=== PATIENT | male | born 1955 | race Caucasian/White ===

== ENCOUNTER 2022-03-07 07:09 | Observation (INO) ==
[2022-03-07] MEDS ORDERED: ONDANSETRON INJ 2 MG/ML 2 ML VIAL ONE (07:21)
[2022-03-07] MEDS ORDERED: ASPIRIN CHEW 324 MG ONE (07:22)
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
[2022-03-07 07:31] LABS: Basophils # (auto) 0.07 K/uL (0-0.2); Basophils % (auto) 0.8 %; Eosinophils # (auto) 0.31 K/uL (0-0.50); Eosinophils % (auto) 3.5 %; Hematocrit (blood only) 39.1 % (40.1-51.0); Hemoglobin 13.6 g/dl (14.0-18.0); Immature Granulocytes # (auto) 0.02 K/uL (0.00-0.02); Immature Granulocytes % (auto) 0.2 %; Lymphocytes # (auto) 2.75 K/uL (1.2-3.4); Lymphocytes % (auto) 31.1 %; Mean Corpuscular Hemoglobin 31.3 pg (25.0-34.0); Mean Corpuscular Hgb Conc 34.8 g/dL (32.0-36.0); Mean Corpuscular Volume 90.1 fL (80.0-100.0); Monocytes # (auto) 1.26 K/uL (0.24-0.82); Monocytes % (auto) 14.2 %; Neutrophils # (auto) 4.44 K/uL (1.4-6.5); Neutrophils % (auto) 50.2 %; Platelet Count 350 K/uL (130-400); RDW Coefficient of Variation 13.4 % (11.5-14.5); RDW Standard Deviation 44.1 fL (36.4-46.3); Red Blood Count 4.34 M/uL (4.63-6.08); White Blood Count 8.85 K/ul (4.8-10.8)
[2022-03-07 07:45] LABS: D Dimer 440 ug/L FEU (0-500)
[2022-03-07 07:53] LABS: Albumin Globulin Ratio 1.3 (0.9-2); Albumin Level 3.9 gm/dl (3.4-5.0); BUN Creatinine Ratio 19.4 (10-20); Bilirubin,Total 0.7 mg/dl (0.2-1.0); Calcium 9.9 mg/dl (8.5-10.1); Creatinine Clr Calc Pharmacy 134.4 ml/min; Est GFR (African American) 115.2 ml/min; Est GFR (Non-African American) 99.4 ml/min; Globulin 2.9 gm/dl (2.5-4.0); Magnesium 1.6 mg/dl (1.7-2.4); Potassium 3.6 mmol/L (3.5-5.1); Total Protein 6.8 gm/dl (6.0-8.3)
[2022-03-07] MEDS ORDERED: MAGNESIUM SULFATE / D5W 1 GM/100 ML BAG IV STA (07:54)
--- NOTE | 2022-03-07 08:03 | XRay Report ---
XR chest 1V portable CLINICAL HISTORY: chest pain, sob TECHNIQUE: Single frontal radiograph of the chest was obtained. Comparison: None available at the time of this dictation. FINDINGS: No lines and tubes are seen. Cardiomegaly is noted. Prominence and cephalization of the vasculature i s seen. No evidence of pleural effusion or pneumothorax. IMPRESSION: Cardiomegaly and mild pulmonary edema. ACT 112: Negative or not required by law. Electronically signed by: Bennett Prado M.D. 03/07/2022 8:02 AM
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
[2022-03-07] MEDS ORDERED: NovoLIN-R INSULIN PER UNIT CHARGE IV STA (12:19)
[2022-03-07] MEDS: Patient's ALLERGY Info needs ENTERED SCH ×6 (13:00→18:47)
[2022-03-07 13:02] LABS: Influenza A virus by PCR Negative (Neg); Influenza B virus by PCR Negative (Neg); RSV by PCR Negative (Neg); SARS CoV2 RNA(COVID-19) InHosp NEGATIVE (Negative)
[2022-03-07] MEDS: LOSARTAN POTASSIUM 50 MG TAB PO SCH (13:45)
--- NOTE | 2022-03-07 15:13 | XCELERA ---
[id number] \\[id number]
[2022-03-07] MEDS ORDERED: ACETAMINOPHEN 325 MG TAB PO PRN (15:41)
[2022-03-07] MEDS ORDERED: GLUCAGON FOR INJ 1 MG VIAL SQ PRN (15:41)
[2022-03-07] MEDS ORDERED: CARBOHYDRATES FOR HYPOGLYCEMIA PO PRN (15:41)
[2022-03-07] MEDS ORDERED: DEXTROSE 50% 50 ML SYRINGE IV PRN (15:41)
[2022-03-07] MEDS ORDERED: POLYETHYLENE (MIRALAX) 17 GM PACK PO PRN (15:41)
[2022-03-07] MEDS ORDERED: GLUCOSE 10 TAB/TUBE PO PRN (15:41)
[2022-03-07] MEDS ORDERED: GLUCOSE 40% GEL 15 GM TUBE PO PRN (15:41)
--- NOTE | 2022-03-07 15:53 | Electrocardiogram Report ---
Test Reason : Blood Pressure : / mmHG Vent. Rate : 061 BPM Atrial Rate : 061 BPM P-R Int : 206 ms QRS Dur : 096 ms QT Int : 440 ms P-R-T Axes : -08 -09 036 degrees QTc Int : 442 ms Normal sinus rhythm Normal ECG When compared with ECG of 04-JAN-2001 07:51, No significant change was found Confirmed by Julian Snow ([id number]) on 03/07/2022 3:53:23 PM Referred By: REFERRED SELF Confirmed By:Julian Snow
[2022-03-07] MEDS: INSULIN ASPART PER UNIT SC SCH ×2 (18:44→22:39)
[2022-03-07] MEDS ORDERED: amLODIPine BESYLATE 5 MG TAB PO SCH (21:00)
[2022-03-07] MEDS ORDERED: ATORVASTATIN 10 MG TAB PO SCH (21:00)
[2022-03-07] MEDS ORDERED: hydroCHLOROthiazide 25 MG TAB PO SCH (21:00)
--- NOTE | 2022-03-07 21:12 | Ultrasound Report ---
US thyroid CLINICAL HISTORY: 66 years-old Male with hx thyroid nodule/tumor. Follow-up study in a patient with history of thyroid nodules COMPARISON: None TECHNIQUE: Multiple real time sonographic images of the thyroid were obtained accessing rossi scale ap pearance and color doppler flow. FINDINGS: MEASUREMENTS: Right lobe: 4.3 x 1.8 x 1.7 cm Left lobe: 4.4 x 2.8 x 1.6 cm Isthmus: 0.2 cm PARENCHYMA: The thyroid parenchymal echotexture is heterogeneous. NODULES: Complex predominantly solid and partially cystic nodule of the inferior left thyroid measure s 1.9 x 1.8 x 1.9 cm. IMPRESSION: Complex mixed cystic and solid nodule of the inferior left thyroid measures up to 1.9 cm. Correlation with FNA recommended if not already conducted. ACT 112: Negative or not required by law. The above report was generated using voice recognition software. It may contain grammatical, syntax o r spelling errors. Electronically signed by: Wesley Constantino M.D. 03/07/2022 9:10 PM
[2022-03-07] MEDS: ENOXAPARIN INJ 40 MG/0.4 ML SYR SQ SCH (22:43)
[2022-03-07] MEDS: LANTUS PER UNIT CHARGE SQ SCH (22:59)
[2022-03-08] MEDS: Patient's ALLERGY Info needs ENTERED SCH ×7 (03:09→07:58)
[2022-03-08 07:43] LABS: Basophils # (auto) 0.05 K/uL (0-0.2); Basophils % (auto) 0.6 %; Eosinophils # (auto) 0.31 K/uL (0-0.50); Eosinophils % (auto) 3.7 %; Hematocrit (blood only) 39.3 % (40.1-51.0); Hemoglobin 13.5 g/dl (14.0-18.0); Immature Granulocytes # (auto) 0.02 K/uL (0.00-0.02); Immature Granulocytes % (auto) 0.2 %; Lymphocytes % (auto) 31.1 %; Mean Corpuscular Hemoglobin 31.1 pg (25.0-34.0); Mean Corpuscular Hgb Conc 34.4 g/dL (32.0-36.0); Mean Corpuscular Volume 90.6 fL (80.0-100.0); Mean Platelet Volume 9.8 fL (9.4-12.4); Monocytes # (auto) 1.19 K/uL (0.24-0.82); Monocytes % (auto) 14.2 %; Neutrophils % (auto) 50.2 %; Platelet Count 361 K/uL (130-400); RDW Coefficient of Variation 13.5 % (11.5-14.5); RDW Standard Deviation 45.1 fL (36.4-46.3); Red Blood Count 4.34 M/uL (4.63-6.08); White Blood Count 8.37 K/ul (4.8-10.8)
[2022-03-08] MEDS ORDERED: Nursing to Pharmacy Communication SCH (07:45)
[2022-03-08 08:09] LABS: BUN Creatinine Ratio 21.7 (10-20); Calcium 9.4 mg/dl (8.5-10.1); Creatinine Clr Calc Pharmacy 149.4 ml/min; Est GFR (African American) 120.6 ml/min; Magnesium 1.7 mg/dl (1.7-2.4); Potassium 3.9 mmol/L (3.5-5.1)
[2022-03-08 08:22] LABS: Estimated Average Glucose 240 mg/dl
[2022-03-08 08:38] LABS: Cortisol AM 17.04 mcg/dl (6.2-22.6)
[2022-03-08 08:43] LABS: Base Excess ABG 3.2 mEq/L (-9-1.8); HCO3 ABG 28 mmol/L (19-24); PCO2 ABG 42 mmHg (35-46); PO2 ABG 65 mmHg (80-95); pH ABG 7.43 (7.35-7.45)
[2022-03-08 08:44] LABS: Allen Test Pos (Pos)
[2022-03-08 08:46] LABS: Prolactin 7.37 ng/ml
[2022-03-08] MEDS ORDERED: ATORVASTATIN 10 MG TAB PO SCH (09:00)
[2022-03-08] MEDS ORDERED: amLODIPine BESYLATE 5 MG TAB PO SCH (09:00)
[2022-03-08] MEDS ORDERED: LOSARTAN POTASSIUM 25 MG TAB PO SCH (09:00)
[2022-03-08] MEDS ORDERED: hydroCHLOROthiazide 25 MG TAB PO SCH (09:00)
[2022-03-08] MEDS: INSULIN ASPART PER UNIT SC SCH ×2 (09:21→12:38)
[2022-03-08] MEDS: LANTUS PER UNIT CHARGE SQ SCH (09:21)
[2022-03-08] MEDS: LOSARTAN POTASSIUM 50 MG TAB PO SCH (09:22)
[2022-03-08] MEDS: ENOXAPARIN INJ 40 MG/0.4 ML SYR SQ SCH (09:22)
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
== END 2022-03-08 14:18 | disposition home or self-care (01) ==
LOC: EDINP 07:09 → ED 07:09 → SUATTDRO 11:50 → 2N 15:22

== ENCOUNTER 2023-09-04 12:52 | Inpatient (IN) ==
[2023-09-04 13:27] LABS: Basophils # (auto) 0.05 K/uL (0.00-0.20); Basophils % (auto) 0.6 %; Eosinophils # (auto) 0.15 K/uL (0.00-0.50); Eosinophils % (auto) 1.8 %; Hematocrit (blood only) 41.9 % (42.0-52.0); Hemoglobin 14.3 g/dl (14.0-18.0); Immature Granulocytes # (auto) 0.03 K/uL (0.01-0.20); Immature Granulocytes % (auto) 0.4 %; Lymphocytes # (auto) 1.86 K/uL (1.20-3.40); Lymphocytes % (auto) 22.5 %; Mean Corpuscular Hgb Conc 34.1 g/dL (32.0-36.0); Mean Corpuscular Volume 90.7 fL (80.0-100.0); Mean Platelet Volume 9.3 fL (9.4-12.4); Monocytes % (auto) 15.7 %; Neutrophils # (auto) 4.88 K/uL (1.40-6.50); Platelet Count 312 K/uL (130-400); RDW Coefficient of Variation 14.5 % (11.5-14.5); RDW Standard Deviation 48.1 fL (36.4-46.3); Red Blood Count 4.62 M/uL (4.70-6.10); White Blood Count 8.27 K/ul (4.8-10.8)
[2023-09-04] MEDS: NITROGLYCERIN 2% OINTMENT 30GM TUBE EXT STA (13:34)
--- NOTE | 2023-09-04 13:41 | XRay Report ---
XR chest 1V portable HISTORY: 68 years-old Male Chest pain, nonspecific COMPARISON: 01/07/2023 TECHNIQUE: AP view of the chest FINDINGS: Cardiac silhouette is enlarged. Mild chronic interstitial coarsening. No pneumothorax, pleural effusi on or airspace consolidation. Spondylotic spurring of the spine. IMPRESSION: Cardiomegaly without acute process. ACT 112: Negative or not required by law. The above report was generated using voice recognition software. It may contain grammatical, syntax o r spelling errors. Electronically signed by: Wesley Constantino M.D. 09/04/2023 1:39 PM
[2023-09-04 13:46] LABS: Albumin Globulin Ratio 1.3 (0.9-2); Albumin Level 4.2 gm/dl (3.4-5.0); BUN Creatinine Ratio 21.2 (10-20); Bilirubin,Total 0.6 mg/dl (0.2-1.0); Calcium 8.8 mg/dl (8.6-10.3); Creatinine Clr Calc Pharmacy 126.8 ml/min; Est GFR (African American) 114.3 ml/min; Est GFR (Non-African American) 98.6 ml/min; Globulin 3.3 gm/dl (2.5-4.0); Potassium 3.5 mmol/L (3.5-5.1); Total Protein 7.5 gm/dl (6.0-8.3)
[2023-09-04 13:50] LABS: Partial Thromboplastin Ratio 0.9; Partial Thromboplastin Time 24 Seconds (21-31); Prothrombin Time 10.9 Seconds (9.0-12.0); Troponin I High Sensitivity 7.3 pg/ml (0-20)
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
[2023-09-04] MEDS: ACETAMINOPHEN 500 MG TAB PO STA (14:42)
[2023-09-04] MEDS: MoRPHine SULFATE 2 MG/ML CARP IV STA (14:47)
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
[2023-09-04 18:43] LABS: Lyme Screen Rflx Confirmation Positive (Negative)
[2023-09-04] MEDS ORDERED: GLUCOSE 10 TAB/TUBE PO PRN (19:41)
[2023-09-04] MEDS ORDERED: DEXTROSE 50% 50 ML SYRINGE IV PRN (19:41)
[2023-09-04] MEDS ORDERED: GLUCOSE 40% GEL 15 GM TUBE PO PRN (19:41)
[2023-09-04] MEDS ORDERED: GLUCAGON FOR INJ 1 MG VIAL SQ PRN (19:41)
[2023-09-04] MEDS ORDERED: CARBOHYDRATES FOR HYPOGLYCEMIA PO PRN (19:41)
[2023-09-04] MEDS: INSULIN ASPART PER UNIT CHARGE SC SCH (21:05)
[2023-09-05] MEDS: ATORVASTATIN 40 MG TAB PO SCH (01:10)
--- NOTE | 2023-09-05 08:31 | Electrocardiogram Report ---
Test Reason : Blood Pressure : / mmHG Vent. Rate : 058 BPM Atrial Rate : 058 BPM P-R Int : 226 ms QRS Dur : 096 ms QT Int : 434 ms P-R-T Axes : 021 -10 039 degrees QTc Int : 426 ms Sinus bradycardia with 1st degree A-V block Otherwise normal ECG When compared with ECG of 07-JAN-2023 17:58, No significant change Confirmed by Richmond Hall ([id number]) on 09/05/2023 8:30:58 AM Referred By: REFERRED SELF Confirmed By:Richmond Hall
[2023-09-05] MEDS ORDERED: LANTUS PER UNIT CHARGE SQ SCH (09:00)
[2023-09-05 09:13] LABS: Basophils # (auto) 0.04 K/uL (0.00-0.20); Basophils % (auto) 0.4 %; Eosinophils # (auto) 0.19 K/uL (0.00-0.50); Hematocrit (blood only) 42.1 % (42.0-52.0); Hemoglobin 14.5 g/dl (14.0-18.0); Immature Granulocytes # (auto) 0.03 K/uL (0.01-0.20); Immature Granulocytes % (auto) 0.3 %; Lymphocytes # (auto) 2.23 K/uL (1.20-3.40); Mean Corpuscular Hemoglobin 31.4 pg (25.0-34.0); Mean Corpuscular Hgb Conc 34.4 g/dL (32.0-36.0); Mean Corpuscular Volume 91.1 fL (80.0-100.0); Mean Platelet Volume 9.2 fL (9.4-12.4); Monocytes # (auto) 1.16 K/uL (0.11-0.59); Monocytes % (auto) 12.5 %; Neutrophils # (auto) 5.66 K/uL (1.40-6.50); Neutrophils % (auto) 60.8 %; Platelet Count 333 K/uL (130-400); RDW Coefficient of Variation 14.6 % (11.5-14.5); RDW Standard Deviation 48.9 fL (36.4-46.3); Red Blood Count 4.62 M/uL (4.70-6.10); White Blood Count 9.31 K/ul (4.8-10.8)
[2023-09-05 09:19] LABS: BUN Creatinine Ratio 22.7 (10-20); Calcium 8.7 mg/dl (8.6-10.3); Creatinine Clr Calc Pharmacy 126.6 ml/min; Est GFR (African American) 114.3 ml/min; Est GFR (Non-African American) 98.6 ml/min
[2023-09-05] MEDS: ASPIRIN 81 MG ECTAB PO SCH (11:17)
[2023-09-05] MEDS: LOSARTAN POTASSIUM 50 MG TAB PO SCH (11:20)
[2023-09-05] MEDS: amLODIPine BESYLATE 5 MG TAB PO SCH ×2 (11:31→20:29)
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
[2023-09-05] MEDS: LANTUS PER UNIT CHARGE SQ SCH (12:01)
[2023-09-05] MEDS: hydroCHLOROthiazide 25 MG TAB PO SCH (12:08)
--- NOTE | 2023-09-05 12:44 | Pre Anesthesia Assessment ---
Date of Service September 05, 2023 Pre Sedation Assessment Vital Signs Temp Pulse Pulse Resp BP BP Pulse Ox 09/05/23 11:39 97.9 F 65 18 169/92 H 94 09/05/23 08:00 65 09/05/23 07:37 98.4 F 67 18 148/79 H 97 09/05/23 03:25 95 09/05/23 03:19 98.2 F 76 19 159/71 H 90 09/04/23 23:32 97.9 F 60 16 144/75 H 94 09/04/23 23:30 59 L 09/04/23 22:15 63 17 140/84 94 09/04/23 20:13 57 L 14 93 09/04/23 20:10 98.2 F 57 L 17 145/78 H 93 09/04/23 19:56 61 09/04/23 19:41 09/04/23 17:06 53 L 09/04/23 16:06 97.9 F 56 L 14 138/73 94 09/04/23 13:13 87 09/04/23 13:05 94 09/04/23 12:59 99.0 F 61 14 144/68 H 93 Pulse Ox O2 Del Method O2 Del Method O2 Flow Rate 09/05/23 11:39 Room Air 09/05/23 08:00 09/05/23 07:37 Nasal Cannula 1 09/05/23 03:25 Nasal Cannula 2 09/05/23 03:19 Room Air 09/04/23 23:32 Room Air 09/04/23 23:30 09/04/23 22:15 Room Air 09/04/23 20:13 Room Air 09/04/23 20:10 Room Air 09/04/23 19:56 09/04/23 19:41 93 Room Air 09/04/23 17:06 09/04/23 16:06 Room Air 09/04/23 13:13 09/04/23 13:05 Room Air 09/04/23 12:59 Room Air Cardiovascular + regular rate Respiratory + respiratory effort normal Pre-Sedation Airway Assessment Smoking Status: Never smoker Hx Sleep Apnea: No Hx Difficult Intubation: No Short, Thick Neck: No Thyromental Distance: > or= 3.5 Finger Breadths Oral Cavity: + WNL Mallampati Class: III ASA: ASA3 Procedure Planning Contraindications for Sedation: none Current Medications Reviewed: Yes Notes The planned sedation has been discussed with the patient. Informed Consent was obtained. I have identified the patient, determined the appropriateness of sedation and have assessed the patient immediately prior to the procedure. All medicine(s) and interventions are by my order.
[2023-09-05] MEDS: NITROGLYCERIN/D5W 100MCG/ML 20ML SYR ONE (13:04)
[2023-09-05] MEDS: niCARdipine HCL INJ 2.5 MG/ML 10 ML AMP ONE (13:04)
[2023-09-05] MEDS: MIDAZOLAM HCL 1 MG/ML 2ML VIAL ONE (14:05)
[2023-09-05] MEDS: HEPARIN (PORCINE) 1000 UNIT/ML 10 ML (CATH LAB USE ONLY) ONE ×2 (14:06→14:08)
[2023-09-05] MEDS: fentaNYL citrate PF 100 MCG/2 ML VIAL ONE (14:06)
[2023-09-05] MEDS: OPTIRAY 350 ONE (14:07)
[2023-09-05] MEDS: CLOPIDOGREL BISULFATE 300 MG TAB ONE (14:08)
--- NOTE | 2023-09-05 14:19 | Post Anesthesia Assessment ---
Date of Service September 05, 2023 Post Sedation Assessment Vital Signs Temp Pulse Pulse Resp BP Pulse Ox Pulse Ox 09/05/23 11:39 97.9 F 65 18 169/92 H 94 09/05/23 08:00 65 09/05/23 07:37 98.4 F 67 18 148/79 H 97 09/05/23 03:25 95 09/05/23 03:19 98.2 F 76 19 159/71 H 90 09/04/23 23:32 97.9 F 60 16 144/75 H 94 09/04/23 23:30 59 L 09/04/23 22:15 63 17 140/84 94 09/04/23 20:13 57 L 14 93 09/04/23 20:10 98.2 F 57 L 17 145/78 H 93 09/04/23 19:56 61 09/04/23 19:41 93 09/04/23 17:06 53 L 09/04/23 16:06 97.9 F 56 L 14 138/73 94 O2 Del Method O2 Del Method O2 Flow Rate 09/05/23 11:39 Room Air 09/05/23 08:00 09/05/23 07:37 Nasal Cannula 1 09/05/23 03:25 Nasal Cannula 2 09/05/23 03:19 Room Air 09/04/23 23:32 Room Air 09/04/23 23:30 09/04/23 22:15 Room Air 09/04/23 20:13 Room Air 09/04/23 20:10 Room Air 09/04/23 19:56 09/04/23 19:41 Room Air 09/04/23 17:06 09/04/23 16:06 Room Air Recovery Score Activity: Moves 4 extremities Respiration: Deep Breath/Cough Circulation: +/-20% PreAnes Value Consciousness: Fully Awake Oxygen Saturation: O2 needed for >90% Discharge Sedation Level of Care: Fast Track Phase II Post Sedation Plan On clinical assessment, the patient appears to have tolerated the sedation without complications. Patient is recovering as anticipated. Patient will continue to be monitored by nursing and may be discharged when sedation discharge criteria are met per below protocol. Upon Completions of procedure up to 15 minutes continue every 5 minute vital signs and the P.A.R. score; then discharge to a Phase I or Fast Track to Phase II per the following guidelines: * Discharge Patient to appropriate Phase II area if PAR is 8 or greater or return to pre- procedure baseline. The post - procedure orders will be as directed. * If PAR score is less than 8 or not return to pre-procedure baseline then patient will follow Phase I monitoring till PAR is reached for Phase II. The Phase I may be done in procedure room or may call to secure a Phase I area. * If naloxone or flumazenil are used for reversal, hold in Phase I for continued monitoring from when last reversal dose was given for a minimum of 60 minutes or longer pending the nurse and/or physician discretion of patient condition before discharge to Phase II. Please call the Sedation Physician to re-evaluate and complete post-note for discharge to Phase II area. Do NOT discharge from procedure sedation or Phase 1 until post- sedation evaluation note is complete by procedure /sedation MD Sedation Discharge Instructions to be given to the patient at discharge to home.
--- NOTE | 2023-09-05 14:20 | Cardiac Catheterization ---
[facility] Data: Smocker Cardiac Status Clinical evaluation leading to the procedure CAD Presenation: Unstable angina Anginal Classification: CCS III Diagnostic Physicians Name: Henrry Tinajero MD Closure Device Recommendations: PCI without planned CABG Cardiac Cath Procedure Full Procedure Date September 05, 2023 Pre-Procedure Diagnosis Pre-Procedure Diagnosis: Acute Coronary Syndrome AUC Score AUC Score: 7 Post-Procedure Diagnosis Post-Procedure Diagnosis: Severe CAD, Successful PCI and Normal Intracardiac Pressures Procedure(s) Performed Procedure(s) Performed: Coronary Angiography, Left Heart Cath and Drug Eluting Stent Route Specialist Henrry Tinajero MD Sales Planning Manager(s) Olivier Estimated Blood Loss Estimated Blood Loss: 20 Medication(s) Medication(s): Fentanyl, Heparin, Lidocaine 1%, Nicardipine, Nitroglycerin and Versed Summary of Findings Indication: Accelerating angina Access: 6 Fr right radial artery Catheters: [place], JR4 guide, EBU 3.5 guide Findings: LM -normal caliber, no significant disease LAD -small to medium caliber, 40-50% diffuse mid segment disease after takeoff of D1. Distal vessel with luminal irregularities and tapers to apex. Small D1 with 60% ostial stenosis. Circumflex -medium caliber, 30% disease in proximal to mid segment across takeoff of OM 2 distal AV groove circumflex without significant disease. Moderate OM 2 with 80% proximal stenosis. RCA -dominant, large caliber, 20% mid segment stenosis. Medium RPDA with 70-80% mid segment stenosis LVEDP -13 -- PCI -- Antithrombotic therapy: Heparin, clopidogrel Procedure: RCA cannulated with JR4 guide Pre-procedure flow HERI 3 Speaker Mounter 50 wire passed across lesion into distal vessel Mid RPDA lesion predilated with 2.0 compliant balloon Dilated lesion stented with 2.25 x 18 mm [place] drug-eluting stent Stent post-dilated with 2.5 noncompliant balloon IC vasodilators administered for spasm Post procedure HERI 3 flow, stent well expanded with minimal residual stenosis and no apparent cardiac complications. Left main cannulated with EBU 3.5 guide Pre-procedure flow HERI 3 Speaker Mounter 50 wire passed across lesion into distal vessel Proximal OM2 lesion predilated with 2.0 compliant balloon Dilated lesion stented with 2.5 x 18 mm Angel drug-eluting stent Stent post-dilated with 2.75 noncompliant balloon IC vasodilators administered for spasm Post procedure HERI 3 flow, stent well expanded with minimal residual stenosis and no apparent cardiac complications. Arterial Closure: TR band Summary: 1. Multivessel coronary artery disease -75% mid RPDA 80% proximal OM2 40-50% diffuse mid LAD. 60% ostial small D1 2. Normal intracardiac filling pressure 3. Successful PCI of mid RPDA with single drug-eluting stent (2.25 x 18 mm [place]; postdilated with 2.5 NC). 4. Successful PCI of proximal OM2 with single drug-eluting stent (2.5 x 18 mm Angel; postdilated with 2.75 NC). Recommendations: To PCU for continued monitoring Loaded with clopidogrel 600 mg in Smocker Continue dual-antiplatelet therapy for at least 6-months Continue statin, and ASCVD risk factor modification Consult cardiac Rehab Hemodynamics Rest Ao:: 127/70/95 Final Ao: 118/57/84 LV: 116/13 Recommendations Recommendations: PCI without planned CABG Specimens Specimens: None Radiation Exposure (mGy) 4328 Contrast (mls) 175 Anesthesia Moderate 7436-3363 Procedural Complication(s) None Disposition PCU I attest to the content of the Intraoperative Record and any orders documented therein. Any exceptions are noted below. [facility] Card Cath Procedure Codes Cardiac Catheterization Procedure 1: Cardiovascular Cath Procedures: 58694 Coronaries and LHC (+/-LV) Moderate Sedation Procedure 1: Sedation/Anesthesia: 83429 Mod Sedation by the same physician;Init15 Min Child Age 5 & Up Procedure 2: Sedation/Anesthesia: 50611 Mod Sedation by the same physician; Ea [id number] Minutes Stenting Procedure 1: Cardiovascular Stent Procedures: 38273 Perc transcatheter placement of intracoronary stent(s), with ang Procedure 2: Cardiovascular Stent Procedures: 04759 Ea addl branch of a major coronary artery PG Care Time/CCT Total # of Minutes Spent Total Time Spent with Patient: Total time spent is greater than 50% in coordination of care (as documented) at patient's floor/unit and/or counseling patient:
--- NOTE | 2023-09-05 15:12 | Hospitalist Progress Note ---
Date of Service September 05, 2023 Assessment & Plan (1) Chest pain: Plan: Exertional angina No acute ischemic EKG changes Troponin normal Last echo 02/2022 with EF 55 to 60% no wall motion abnormalities Cardiac catheterization completed today 09/04 status post successful PCI of PDA and proximal OM 2 with 2 drug-eluting stents Patient has been loaded with Plavix Continue dual antiplatelet agents Continue statin (2) Diabetes: Plan: DM 2 A1c 7.9% on insulin and SGLT2 Basal bolus SSI while inpatient Goal BSG [id number] (3) CVA (cerebral vascular accident): Plan: Aspirin continued no new deficits no new change in management (4) Hyperlipidemia: Plan: On statin Plan DVT prophylaxis heparin Disposition: Medical telemetry CODE STATUS: Full code Diet: Heart healthy, DM 2. N.p.o. midnight Admission and Anticipated Discharge Date Admission Date: September 04, 2023 Subjective Patient feeling well. No chest pain at rest. When I saw the patient earlier, he was still waiting for the cardiac catheterization to be completed. Since then, I have been notified by the printing roller polisher that cardiac catheterization revealed multivessel coronary artery disease and has had 2 stents placed. Review of Systems Review of Systems: All systems reviewed & are unremarkable except as noted in Subjective Physical Exam Physical Exam: General: Awake, conversant Heart: S1, S2/regular rate and rhythm, no murmur rubs or gallops Lungs: Clear to auscultation bilaterally. Normal effort Abdomen: Soft/nontender/nondistended. No hepatosplenomegaly Extremities: No clubbing/cyanosis. No edema Behavior: Appropriate, cooperative Results & Data Results & Data Vital Signs (Past 12 Hours) Vital Signs Temp Pulse Pulse Resp BP Pulse Ox O2 Del Method 09/05/23 14:27 36.6 C 59 L 16 129/75 93 Room Air 09/05/23 11:39 36.6 C 65 18 169/92 H 94 Room Air 09/05/23 08:00 65 09/05/23 07:37 36.9 C 67 18 148/79 H 97 Nasal Cannula 09/05/23 03:25 95 Nasal Cannula 09/05/23 03:19 36.8 C 76 19 159/71 H 90 Room Air O2 Flow Rate 09/05/23 14:27 09/05/23 11:39 09/05/23 08:00 09/05/23 07:37 1 09/05/23 03:25 2 09/05/23 03:19 Laboratory Results Abnormal lab results 09/04/23 09/04/23 09/05/23 Range/Units 13:00 21:02 07:28 RBC (4.70-6.10) M/uL RDW Std Deviation (36.4-46.3) fL RDW Coeff of Jerry (11.5-14.5) % MPV (9.4-12.4) fL Wilkin # (Auto) (0.11-0.59) K/uL Activ Coag Time Kaolin (94-140) SECONDS BUN/Creatinine Ratio (10-20) Glucose (70-99(Fasting)) mg/dl POC Glucose 116 H 101 H (70-99) mg/dl Lyme Disease Screen Positive H (Negative) 09/05/23 09/05/23 09/05/23 Range/Units 08:39 11:13 13:34 RBC 4.62 L (4.70-6.10) M/uL RDW Std Deviation 48.9 H (36.4-46.3) fL RDW Coeff of Jerry 14.6 H (11.5-14.5) % MPV 9.2 L (9.4-12.4) fL Wilkin # (Auto) 1.16 H (0.11-0.59) K/uL Activ Coag Time Kaolin 277 H (94-140) SECONDS BUN/Creatinine Ratio 22.7 H (10-20) Glucose 108 H (70-99(Fasting)) mg/dl POC Glucose 104 H (70-99) mg/dl Lyme Disease Screen (Negative) 09/05/23 Range/Units 13:53 RBC (4.70-6.10) M/uL RDW Std Deviation (36.4-46.3) fL RDW Coeff of Jerry (11.5-14.5) % MPV (9.4-12.4) fL Wilkin # (Auto) (0.11-0.59) K/uL Activ Coag Time Kaolin 233 H (94-140) SECONDS BUN/Creatinine Ratio (10-20) Glucose (70-99(Fasting)) mg/dl POC Glucose (70-99) mg/dl Lyme Disease Screen (Negative) PG Care Time/CCT Total # of Minutes Spent Total Time Spent with Patient: Total time spent is greater than 50% in coordination of care (as documented) at patient's floor/unit and/or counseling patient: Coding Level of Care Code 11245 SUB INP/OBS CARE 2/35MIN Diagnoses Chest pain R07.9 Diabetes E11.9 CVA (cerebral vascular accident) I63.9 Hyperlipidemia E78.5
[2023-09-05] MEDS: SODIUM CHLORIDE 0.9% 1,000 ML IV SCH (15:38)
[2023-09-05] MEDS: OPTIRAY 320 125ml IV ONE (17:06)
--- NOTE | 2023-09-05 17:16 | CT Scan Report ---
CT OF THE HEAD WITHOUT CONTRAST CLINICAL HISTORY: post [facility] stroke sx COMPARISON STUDY: MRI of the brain December 17, 2022. CT DOSE: 625.8 mGy.cm TECHNIQUE: Helical axial images of the head were obtained without IV contrast. Automated exposure con trol was utilized for the study. A dose lowering technique was utilized adhering to the principles o f ALARA. FINDINGS: Incidental note is made of intravascular contrast from recent heart catheterization. No acu te intracranial hemorrhage, midline shift or mass effect is present. The ventricular system is unrema rkable. The basal cisterns are patent. No extra-axial collections are present. There are no findings to suggest acute dural sinus thrombosis or acute territorial infarct. No significant calvarial abnorm alities are present. Visualized portions of the sinuses and mastoid air cells are clear. IMPRESSION: No acute intracranial findings. ACT 112: Negative or not required by law. Electronically signed by: Edilberto Fragoso M.D. 09/05/2023 5:14 PM
--- NOTE | 2023-09-05 17:22 | CT Scan Report ---
CT ANGIOGRAPHY OF THE NECK WITH CONTRAST CLINICAL HISTORY: stroke alert COMPARISON STUDY: MRA of the neck December 17, 2022. Technique: CT angiography of the carotid and vertebral arteries was obtained using Optiray and 3D rec onstruction on an independent workstation. NASCET criteria was utilized. Automated exposure control was utilized for the study. A dose lowering technique was utilized adhering to the principles of ALA RA. CT DOSE: 478.74 mGy.cm Findings: Visualized portions of the lung apices are unremarkable. There is no cervical spine fractur e. 2 cm left lobe thyroid nodule is incidentally noted. There is no cervical lymphadenopathy. This ex am is mildly compromised by artifact. However, the bilateral common carotid, cervical internal caroti d and vertebral arteries are patent. No stenosis, dissection or aneurysm within these vessels is note d. There is mild plaque within the proximal bilateral cervical internal carotid arteries. IMPRESSION: No stenosis or dissection within the bilateral common carotid, cervical internal carotid or vertebral arteries. ACT 112: Negative or not required by law. Electronically signed by: Edilberto Fragoso M.D. 09/05/2023 5:20 PM
--- NOTE | 2023-09-05 17:24 | CT Scan Report ---
CTA ANGIOGRAPHY OF THE HEAD CLINICAL HISTORY: post [facility] stroke sx COMPARISON STUDY: No previous studies for comparison. TECHNIQUE: Helical axial images of the head were obtained following uneventful intravenous administr ation of 119 cc of Optiray. Sagittal and coronal reconstructions were viewed as well as maximal inten sity projections on an independent 3-D workstation. Automated exposure control was utilized for the study. A dose lowering technique was utilized adhering to the principles of ALARA. FINDINGS: No acute intracranial hemorrhage is identified on the head CT which will be reported separa tely. The ventricular system is unremarkable. The basal cisterns are patent. There are no extra-axial collections. The bilateral M1, M2, A1 and A2 segments are patent. No intracranial aneurysm is identi fied. There is no dissection within the intracranial vessels. The posterior circulation is intact. Mi ld intracranial vascular irregularity is likely due to atherosclerosis. No severe stenoses are identi fied. IMPRESSION: No central vessel occlusion. No intracranial aneurysm. ACT 112: Negative or not required by law. Electronically signed by: Edilberto Fragoso M.D. 09/05/2023 5:22 PM
--- NOTE | 2023-09-05 18:24 | Communication Note ---
Date of Service: September 05, 2023 The nurse was called by the patient's as he was unable to get his words out. Upon nurse's assessment, he was note to be weak in both arms and legs with no significant focal deficits, but right was thought to be weaker than the left. A stroke alert was called that was followed by CT head, CTA head and CTA neck which all came back negative. Of note, he had a cardiac cath done with 2 stents placed. He got 600mg of Plavix today along with ASA 81mg. He is not a candidate for thrombolytics. Also, he received Versed and Fentanyl during the cath proce dure today. I personally presented the case to tele-neurologist Dr. Shankar, who will evaluate the patient soon but he agrees that he is not a candidate for lytics. I spoke to the patient, his , the nurse in the ICU to update them about his condition.
[2023-09-05] MEDS: ACETAMINOPHEN 325 MG TAB PO PRN (18:40)
[2023-09-05] MEDS ORDERED: PHARMACIST DISCHARGE MED REC CONSULT PRN (20:46)
[2023-09-05] MEDS: MAGNESIUM SULFATE / D5W 1 GM/100 ML BAG IV SCH (22:47)
[2023-09-06 06:53] LABS: Basophils # (auto) 0.04 K/uL (0.00-0.20); Basophils % (auto) 0.4 %; Eosinophils # (auto) 0.17 K/uL (0.00-0.50); Eosinophils % (auto) 1.5 %; Hematocrit (blood only) 40.3 % (42.0-52.0); Hemoglobin 13.9 g/dl (14.0-18.0); Immature Granulocytes # (auto) 0.04 K/uL (0.01-0.20); Immature Granulocytes % (auto) 0.4 %; Lymphocytes # (auto) 2.87 K/uL (1.20-3.40); Lymphocytes % (auto) 25.7 %; Mean Corpuscular Hemoglobin 31.4 pg (25.0-34.0); Mean Corpuscular Hgb Conc 34.5 g/dL (32.0-36.0); Mean Platelet Volume 9.1 fL (9.4-12.4); Monocytes % (auto) 14.3 %; Neutrophils # (auto) 6.43 K/uL (1.40-6.50); Neutrophils % (auto) 57.7 %; Platelet Count 339 K/uL (130-400); RDW Coefficient of Variation 14.3 % (11.5-14.5); Red Blood Count 4.43 M/uL (4.70-6.10); White Blood Count 11.15 K/ul (4.8-10.8)
[2023-09-06] MEDS ORDERED: PHARMACIST DISCHARGE MED REC CONSULT PRN (07:15)
[2023-09-06 07:19] LABS: BUN Creatinine Ratio 24.6 (10-20); Calcium 8.1 mg/dl (8.6-10.3); Chol HDL Ratio 4.4 (0-5); Creatinine Clr Calc Pharmacy 146.3 ml/min; Est GFR (African American) 121.4 ml/min; Est GFR (Non-African American) 104.8 ml/min; Potassium 3.6 mmol/L (3.5-5.1)
--- NOTE | 2023-09-06 07:51 | Electrocardiogram Report ---
Test Reason : Blood Pressure : / mmHG Vent. Rate : 060 BPM Atrial Rate : 059 BPM P-R Int : 000 ms QRS Dur : 092 ms QT Int : 458 ms P-R-T Axes : 000 -19 011 degrees QTc Int : 458 ms Sinus rhythm with 1st degree AV block Minimal voltage criteria for LVH, may be normal variant Abnormal ECG Confirmed by Henrry Salinas ([id number]) on 09/06/2023 7:50:44 AM Referred By: REFERRED SELF Confirmed By:Kenan Salinas
[2023-09-06 09:11] LABS: Platelet Function Test COL EPI 193 Seconds (80-184)
[2023-09-06 09:39] LABS: Platelet Function Test COL ADP 94 Seconds (56-102)
[2023-09-06] MEDS: CLOPIDOGREL BISULFATE 75 MG TAB PO SCH (10:08)
--- NOTE | 2023-09-06 10:16 | Cardiology Progress Note ---
Date of Service September 06, 2023 Assessment & Plan (1) Angina pectoris, crescendo: Plan: Patient underwent coronary angiography yesterday demonstrating multivessel coronary disease. Successful percutaneous intervention to both the right coronary artery and circumflex. No recurrent symptoms. Patient on dual anti- platelet therapy and high-dose atorvastatin. He should continue Losartan and Jardiance. He did not suffer a myocardial infarction, I do not believe there is a current indication for beta-blockade. We will consult cardiac rehab. He was counseled to refrain from vigorous activity involving the right hand or wrist for 1 week. (2) Hypertension: Plan: Good control this morning. We will need to be monitored closely on an outpatient basis (3) Hyperlipidemia: Plan: -continue high-dose atorvastatin. (4) CVA (cerebral vascular accident): Plan: The patient had a period of expressive aphasia yesterday. Significant disease or approximate cause for his event. No obvious infarct. Symptoms resolved without any specific intervention. Will await final recommendations from the neurology service. Plan From a cardiology standpoint he would be safe for discharge today. I will put the appropriate precautions in the discharge orders. This primarily involves refraining from further issues of the right hand for 7 days. Recommend Dual anti-platelet therapy Losartan High-dose atorvastatin Jardiance Amlodipine I will send a consult to cardiac rehab Admission and Anticipated Discharge Date Admission Date: September 04, 2023 Subjective This morning the patient was feeling well. There appeared to be an episode of expressive aphasia yesterday reportedly evaluated by [employer], but no documentation in the chart at this point. Patient states that his symptoms have resolved entirely. No residual chest discomfort or breathing difficulty. He has been ambulatory around his room without significant dizziness or lightheadedness. No symptoms involving the right radial access site or right hand. Review of Systems Review of Systems: Per HPI Physical Exam Physical Exam: The patient is alert and oriented. Mood and affect appeared normal. He answered all questions appropriately. HEENT: Pupils are equal and reactive to light and accommodation. Extraocular movements are intact. The sclerae are anicteric. Neuro: Cranial nerves intact. No aphasia Lungs: Clear to auscultation bilaterally. He has good air movement without use of accessory muscles. No rales wheezes or rhonchi. Cardiac: Heart demonstrates a regular rate and rhythm. Normal S1 and S2. No murmurs on examination. Pulses: The patient has palpable radial pulses bilaterally that are equal in intensity. Good perfusion of the right hand. No hematoma or ecchymosis at the access site. Extremities: There was no evidence of hypoperfusion. There is no cyanosis or clubbing. There is no edema. Skin: I did not appreciate any rashes on examination today. Results & Data Vital Signs (Past 12 Hours) Vital Signs Temp Pulse Pulse Resp BP Pulse Ox O2 Del Method 09/06/23 08:00 83 09/06/23 08:00 Room Air 09/06/23 07:55 36.7 C 67 20 132/71 94 Room Air 09/06/23 02:46 36.7 C 84 15 125/58 L 95 Nasal Cannula 09/05/23 23:05 36.9 C 75 17 144/72 H 97 Nasal Cannula O2 Flow Rate 09/06/23 08:00 09/06/23 08:00 09/06/23 07:55 09/06/23 02:46 2 09/05/23 23:05 2 Laboratory Results Abnormal Lab Results 09/05/23 09/05/23 09/05/23 11:13 13:34 13:53 WBC RBC Hgb Hct MCV MCH MCHC RDW Std Deviation RDW Coeff of Jerry Plt Count MPV Immature Gran % (Auto) Neut % (Auto) Lymph % (Auto) Liberty % (Auto) Eos % (Auto) Baso % (Auto) Neut # (Auto) Lymph # (Auto) Liberty # (Auto) Eos # (Auto) Baso # (Auto) Immature Gran # (Auto) Activ Coag Time Kaolin 277 H 233 H Plt Func Collagen/Epi Plt Func Collagen/ADP Sodium Potassium Chloride Carbon Dioxide Anion Gap BUN Creatinine Est Cr Clr Drug Dosing Est GFR ( Amer) Est GFR (Non-Af Amer) BUN/Creatinine Ratio Glucose POC Glucose 104 H Calcium Magnesium Triglycerides Cholesterol LDL Cholesterol, Calc VLDL Cholesterol, Calc HDL Cholesterol Cholesterol/HDL Ratio 09/05/23 09/05/23 09/05/23 14:29 16:37 21:03 WBC RBC Hgb Hct MCV MCH MCHC RDW Std Deviation RDW Coeff of Jerry Plt Count MPV Immature Gran % (Auto) Neut % (Auto) Lymph % (Auto) Liberty % (Auto) Eos % (Auto) Baso % (Auto) Neut # (Auto) Lymph # (Auto) Liberty # (Auto) Eos # (Auto) Baso # (Auto) Immature Gran # (Auto) Activ Coag Time Kaolin Plt Func Collagen/Epi Plt Func Collagen/ADP Sodium Potassium Chloride Carbon Dioxide Anion Gap BUN Creatinine Est Cr Clr Drug Dosing Est GFR ( Amer) Est GFR (Non-Af Amer) BUN/Creatinine Ratio Glucose POC Glucose 97 86 Calcium Magnesium 1.9 Triglycerides Cholesterol LDL Cholesterol, Calc VLDL Cholesterol, Calc HDL Cholesterol Cholesterol/HDL Ratio 09/06/23 09/06/23 09/06/23 06:23 07:13 07:49 WBC 11.15 H RBC 4.43 L Hgb 13.9 L Hct 40.3 L MCV 91.0 MCH 31.4 MCHC 34.5 RDW Std Deviation 48.0 H RDW Coeff of Jerry 14.3 Plt Count 339 MPV 9.1 L Immature Gran % (Auto) 0.4 Neut % (Auto) 57.7 Lymph % (Auto) 25.7 Liberty % (Auto) 14.3 Eos % (Auto) 1.5 Baso % (Auto) 0.4 Neut # (Auto) 6.43 Lymph # (Auto) 2.87 Liberty # (Auto) 1.60 H Eos # (Auto) 0.17 Baso # (Auto) 0.04 Immature Gran # (Auto) 0.04 Activ Coag Time Kaolin Plt Func Collagen/Epi 193 H Plt Func Collagen/ADP 94 Sodium 138 Potassium 3.6 Chloride 107 Carbon Dioxide 26 Anion Gap 5 BUN 14 Creatinine 0.57 L Est Cr Clr Drug Dosing 146.3 Est GFR ( Amer) 121.4 Est GFR (Non-Af Amer) 104.8 BUN/Creatinine Ratio 24.6 H Glucose 86 POC Glucose 93 Calcium 8.1 L Magnesium Triglycerides 79 Cholesterol 111 LDL Cholesterol, Calc 70 VLDL Cholesterol, Calc 16 HDL Cholesterol 25 Cholesterol/HDL Ratio 4.4 Diagnostic Findings Coronary angiography 09/05/2023: 1. Multivessel coronary artery disease -75% mid RPDA 80% proximal OM2 40-50% diffuse mid LAD. 60% ostial small D1 2. Normal intracardiac filling pressure 3. Successful PCI of mid RPDA with single drug-eluting stent (2.25 x 18 mm Angel; postdilated with 2.5 NC). 4. Successful PCI of proximal OM2 with single drug-eluting stent (2.5 x 18 mm [place]; postdilated with 2.75 NC). PG Care Time/CCT Total # of Minutes Spent Total Time Spent with Patient: Total time spent is greater than 50% in coordination of care (as documented) at patient's floor/unit and/or counseling patient: Coding Level of Care Code 96506 SUB INP/OBS CARE 2/35MIN Diagnoses Angina pectoris, crescendo I20.0 Hypertension I10 Hyperlipidemia E78.5 CVA (cerebral vascular accident) I63.9
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
--- NOTE | 2023-09-06 12:20 | Magnetic Resonance Report ---
Brain MRI WITHOUT CONTRAST HISTORY: Difficulty speaking. Confusion. stroke/TIA TECHNIQUE: Multiplanar multisequence MRI of the brain was performed without the use of contrast. COMPARISON STUDY: Head CT 09/05/2023. FINDINGS: There is no mass, hematoma, midline shift, or acute infarct. The paranasal sinuses are reena r. The mastoid air cells are clear. The ventricles and sulci demonstrate mild age-related involutiona l changes. Scattered foci of T2 hyperintensity seen within the periventricular and subcortical white matter are nonspecific but suggestive of mild microvascular ischemic changes. The major vascular flow voids at the skull base are well-maintained. IMPRESSION: No acute infarct or intracranial hemorrhage. ACT 112: Negative or not required by law. Electronically signed by: Chivo Boo M.D. 09/06/2023 12:18 PM
--- NOTE | 2023-09-06 14:29 | XCELERA ---
[id number]
--- NOTE | 2023-09-06 15:02 | Hospitalist Progress Note ---
Date of Service September 06, 2023 Assessment & Plan (1) Chest pain: Plan: Exertional angina No acute ischemic EKG changes Troponin normal Last echo 02/2022 with EF 55 to 60% no wall motion abnormalities Cardiac catheterization completed 09/04 status post successful PCI of PDA and proximal OM 2 with 2 drug-eluting stents Patient has been loaded with Plavix Continue dual antiplatelet agents Continue statin Per central supply clerk, no role for metoprolol as patient did not have an HI Director Of Digital Marketing recommended continuing losartan and Jardiance All antihypertensives on hold due to recent ?TIA (2) TIA due to embolism: Plan: Within a few hours after the cardiac catheterization on 09/04, stroke alert was called as the patient was having difficulty speaking and had weakness in all 4 e xtremities, right more than left. The episode started abruptly and was witnessed by his . This may have been an episode of TIA due to embolization of blood clot during stent placement There is some question of whether this was medication related as the patient also got fentanyl and Versed during the catheterization procedure. However, there was an abrupt start time of his symptoms that speaks for a thromboembolic phenomenon CT head, CTA head and neck were all negative MRI brain negative Not a candidate for thrombolytics as the patient just had a cardiac catheterization and got 600 mg Plavix along with aspirin Teleneurologist consulted Stroke workup in progress Echocardiogram negative Allow permissive hypertension. All antihypertensives on hold for another 24 hours May resume losartan tomorrow 09/06 Will monitor overnight for further episodes Likely discharge tomorrow Continue aspirin, Plavix, statin (3) Diabetes: Plan: DM 2 A1c 7.9% on insulin and SGLT2 Basal bolus SSI while inpatient Goal BSG [id number] (4) CVA (cerebral vascular accident): Plan: Aspirin continued (5) Hyperlipidemia: Plan: On statin Plan DVT prophylaxis heparin Disposition: Medical telemetry CODE STATUS: Full code Diet: Heart healthy, DM 2. Admission and Anticipated Discharge Date Admission Date: September 06, 2023 Subjective Patient is back to his usual baseline today. No chest pain, shortness of breath, difficulty speaking, weakness, headache Review of Systems Review of Systems: All systems reviewed & are unremarkable except as noted in Subjective Physical Exam Physical Exam: General: Awake, conversant Heart: S1, S2/regular rate and rhythm, no murmur rubs or gallops Lungs: Clear to auscultation bilaterally. Normal effort Abdomen: Soft/nontender/nondistended. No hepatosplenomegaly Extremities: No clubbing/cyanosis. No edema Behavior: Appropriate, cooperative Results & Data Results & Data Vital Signs (Past 12 Hours) Vital Signs Temp Pulse Pulse Resp BP Pulse Ox O2 Del Method 09/06/23 11:41 37.0 C 75 20 142/69 H 95 Room Air 09/06/23 08:00 83 09/06/23 08:00 Room Air 09/06/23 07:55 36.7 C 67 20 132/71 94 Room Air PG Care Time/CCT Total # of Minutes Spent Total Time Spent with Patient: Total time spent is greater than 50% in coordination of care (as documented) at patient's floor/unit and/or counseling patient: Coding Level of Care Code 01002 SUB INP/OBS CARE 2/35MIN Diagnoses Chest pain R07.9 TIA due to embolism G45.9; I74.9 Diabetes E11.9 CVA (cerebral vascular accident) I63.9 Hyperlipidemia E78.5
[2023-09-07 07:19] LABS: Estimated Average Glucose 180 mg/dl; Hemoglobin A1C 7.9 % (4.5-5.6)
[2023-09-07 08:15] LABS: Basophils # (auto) 0.04 K/uL (0.00-0.20); Basophils % (auto) 0.5 %; Eosinophils # (auto) 0.33 K/uL (0.00-0.50); Eosinophils % (auto) 3.8 %; Hematocrit (blood only) 45.6 % (42.0-52.0); Hemoglobin 15.7 g/dl (14.0-18.0); Immature Granulocytes # (auto) 0.03 K/uL (0.01-0.20); Immature Granulocytes % (auto) 0.3 %; Lymphocytes # (auto) 2.39 K/uL (1.20-3.40); Lymphocytes % (auto) 27.8 %; Mean Corpuscular Hemoglobin 31.1 pg (25.0-34.0); Mean Corpuscular Hgb Conc 34.4 g/dL (32.0-36.0); Mean Corpuscular Volume 90.3 fL (80.0-100.0); Mean Platelet Volume 9.1 fL (9.4-12.4); Monocytes # (auto) 1.39 K/uL (0.11-0.59); Monocytes % (auto) 16.2 %; Neutrophils # (auto) 4.42 K/uL (1.40-6.50); Neutrophils % (auto) 51.4 %; Platelet Count 358 K/uL (130-400); RDW Coefficient of Variation 14.6 % (11.5-14.5); RDW Standard Deviation 48.4 fL (36.4-46.3); Red Blood Count 5.05 M/uL (4.70-6.10)
[2023-09-07 08:32] LABS: BUN Creatinine Ratio 21.3 (10-20); Blood Urea Nitrogen 13 mg/dl (6-23); Calcium 8.7 mg/dl (8.6-10.3); Carbon Dioxide 26 mmol/L (21-32); Chloride 107 mmol/L (98-107); Creatinine Clr Calc Pharmacy 136.8 ml/min; Est GFR (African American) 118.1 ml/min; Est GFR (Non-African American) 101.9 ml/min; Glucose 102 mg/dl (70-99(Fasting))
[2023-09-07 09:28] LABS: Potassium 3.6 mmol/L (3.5-5.1)
--- NOTE | 2023-09-07 11:02 | Discharge Summary ---
Date of Service September 07, 2023 Admission HPI Per Admitting Provider Pascual is a 68-year-old male with past medical history of diabetes, nocturnal hypoxia, hyperlipidemia, hyperparathyroidism s/p parathyroidectomy, DFI who presents with chest discomfort which started approximately 1.5 hours prior to ER assessment and occurred on exertion while working on his car this radiated out into his left arm. Patient had diaphoresis and shortness of breath with this. Patient took aspirin and nitro, pain nearly completely resolved following this. On reassessment pain has improved. Patient has had similar pain 1 day ago when cutting firewood, has not had pain at rest. Chest pain intermittently over the last several (at least 4-5 weeks) although admits has not been chest pain free with exertion for a few months. No chest pain at rest. Pain and shortness of breath are always with exertion. More recently episodes increasing in intensity and duration. Sometimes lasts up to an hour. Improve with nitro. Episode today occured just walking to the shower. NO history of stents or bipass. Last stress test was several years ago. DM2. DM2 LA 44, mealtime 15units. Also takes jardiance for DM. No problems with UTIs. Denies orthopnea, but normally sleeps on a wedge with a CPAP. Medical History: Reviewed Medications: Reviewed Surgical History: Reviewed Family history: Reviewed Allergies: Reviewed Social History: No tobacco product use. No etoh use/. Code Status: Full Code Admission Exam Per Admitting Provider General: A&Ox3. NAD. Cooperative. HEENT: Atraumatic, normocephalic. Pulm: CTAB A&P. -wheezes, -rales, -rhonchi. Symmetrical chest rise. No increased work of breathing. No respiratory distress. Cardiac: RRR, +sm. Radial pulses intact and symmetrical. No jvd Abdominal: Nontender, nondistended, soft. BS present. Trace ankle edema Principal Diagnosis Angina Coronary artery disease status post drug-eluting stents to 2 coronary arteries Likely TIA (mini stroke) Discharge Exam General: Awake, conversant Heart: S1, S2/regular rate and rhythm, no murmur rubs or gallops Lungs: Clear to auscultation bilaterally. Normal effort Abdomen: Soft/nontender/nondistended. No hepatosplenomegaly Extremities: No clubbing/cyanosis. No edema Behavior: Appropriate, cooperative Discharge Data Allergies Allergy/AdvReac Type Severity Reaction Status Date / Time metformin AdvReac Intermediate Verified 08/24/23 10:59 Consultations 09/04/23 14:14 ED Decision to Admit Stat 09/04/23 17:39 Consult Cardiology Routine 09/06/23 07:15 Consult Neurology Routine Procedures Performed Operation Date: 09/05/23 12:30 Actual Procedures s Cineradiography w/Routine Exam - Henrry Tinajero MD p Drug Eluting Stent each ADDTL Vessel - Henrry Tinajero MD s Drug Eluting Stent SGl Vessel - Henrry Tinajero MD p Cath, Left with Cors and Vent - Henrry Tinajero MD Ordered Studies 09/05/23 12:30 CL Cath Imgs for PACS use only Routine 09/05/23 16:57 CT angio head w con Stat CT head/brain wo con Stat 09/05/23 17:01 CTA neck with con [CT angio neck with con] Stat 09/06/23 07:20 MR brain wo con Routine Hospital Course (1) Chest pain: Exertional angina No acute ischemic EKG changes Troponin normal Last echo 02/2022 with EF 55 to 60% no wall motion abnormalities Cardiac catheterization completed 09/04 status post successful PCI of PDA and proximal OM 2 with 2 drug-eluting stents Patient has been loaded with Plavix Continue dual antiplatelet agents Continue statin Per human services professional, no role for metoprolol as patient did not have an MA Brick Carrier recommended continuing losartan and Jardiance Resumed losartan. Continue to hold hydrochlorothiazide and Norvasc until seen by PCP in 1 week as blood pressure stable without them (2) TIA due to embolism: Within a few hours after the cardiac catheterization on 09/04, stroke alert was called as the patient was having difficulty speaking and had weakness in all 4 extremities, right more than left. The episode started abruptly and was witnessed by his . This may have been an episode of TIA due to embolization of blood clot during stent placement There is some question of whether this was medication related as the patient also got fentanyl and Versed during the catheterization procedure. However, there was an abrupt start time of his symptoms that speaks for a thromboembolic phenomenon CT head, CTA head and neck were all negative MRI brain negative Not a candidate for thrombolytics as the patient just had a cardiac catheterization and got 600 mg Plavix along with aspirin Teleneurologist consulted Stroke workup completed. Negative. Echocardiogram negative Allowed permissive hypertension for 48 hours Resumed losartan today 09/06 Continue to hold hydrochlorothiazide and Norvasc until seen by PCP since blood pressure is stable without these medications Continue aspirin, Plavix, statin (3) Diabetes: DM 2 A1c 7.9% on insulin and SGLT2 Basal bolus SSI while inpatient Goal BSG [id number] (4) CVA (cerebral vascular accident): Aspirin continued Statin continued Now on Plavix as well (5) Hyperlipidemia: On statin Plan DVT prophylaxis heparin Disposition: Medical telemetry CODE STATUS: Full code Diet: Heart healthy, DM 2. Total Time Total Time Spent Total Time Spent (In Minutes): 35 Discharge Plan Discharge Items Patient Disposition: Home - Self-Care Reason For Visit: PROGRESSIVE ANGINA Discharge Diagnosis: Angina Coronary artery disease status post drug-eluting stents to 2 coronary arteries Likely TIA (mini stroke) Activity: Per Instructions section Activity Comment: No vigorous or strenuous use of the right hand or wrist for 7 days Lifting: No more than 5 pounds Lifting Comment: No more than 5 lb with the right hand Non-emergency contact: Primary Care Provider Call non-emergency contact if: you have any medication questions and your symptoms worsen Follow-up/Referrals: Henrry Salinas MD [Physician] - (Dr. Salinas's office to reach out to you to schedule follow up appointment. If you don't hear from his office within a couple days, please contact their office to get scheduled. Thank you! ) Zbigniew Stewart, [Primary Care Provider] - 09/15/23 1:00 pm Diet: Carb Consistent or DM2 and Heart Healthy Addtl Attending Provider Instructions: Advised to follow-up with PCP in 1 week Advised to follow-up with human services professional in 2 weeks Pending Studies at Discharge: No Stand-Alone Forms: [facility] Medications and DC Order Prescriptions: New clopidogrel 75 mg Tablet 75 mg PO QAM Qty: 30 0RF Continued atorvastatin [Lipitor] 80 mg tablet 80 mg PO PM Qty: 90 3RF insulin glargine [Lantus Solostar U-100 Insulin] 100 unit/mL (3 mL) insulin pen 44 unit subcut QAM Qty: 15 2RF insulin lispro [Humalog KwikPen Insulin] 100 unit/mL insulin pen 15 unit subcut TIDM MDD 60 units (DME) CPAP Machine Misc .Route Qty: 1 0RF Rx Instructions: CPAP 6 cmH2O, mask fit to patient comfort, heated humidification, compliance download capabilities, DME of patient choice (DME) Oxygen Home E0424 Liters Per Minute See Rx Instructions .MEDSUPPLY Qty: 1 0RF Rx Instructions: 2 L/min bleed with CPAP empagliflozin 25 mg tablet 25 mg PO DAILY aspirin [Adult Low Dose Aspirin] 81 mg tablet,delayed release (DR/EC) 81 mg PO DAILY (DME) pen needle, diabetic [Advocate Pen Needle] 31 gauge x 3/16" needle See Rx Instructions .ROUTE .MEDSUPPLY Qty: 50 Rx Instructions: As directed losartan [Cozaar] 100 mg tablet 100 mg PO DAILY (DME) pen needle, diabetic [BD Ultra-Fine Orig Pen Needle] 29 gauge x 1/2" needle MISCELLANEOUS Held hydrochlorothiazide 12.5 mg capsule 12.5 mg PO DAILY Hold Instructions: Resume on 09/14/23. hold until seen by PCP amlodipine [Norvasc] 5 mg tablet 5 mg PO DAILY Hold Instructions: Resume on 09/14/23. Hold until seen by PCP Discharge Orders: Discharge Order (Routine); Ordered 09/07/23 Ordered By: Chemo Nieves/Other Patient Handouts: Managing Type 2 Diabetes Admission Data Admit Date/Time: 09/06/23 08:55 Attending Provider: Chemo Aguilera Admit Provider: Chemo Aguilera Primary Care Provider: Zbigniew Stewart Other Providers: Jr Ames; Henrry Salinas; Kishore Chamberlain Other Interventions: Discharge Summary Assessment (RN) Last Done: 09/07/23 11:49 Coding Level of Care Code 07369 INP/OBS DISCH >30 MIN Diagnoses Chest pain R07.9 TIA due to embolism G45.9; I74.9 Diabetes E11.9 CVA (cerebral vascular accident) I63.9 Hyperlipidemia E78.5
== END 2023-09-07 12:59 | disposition home or self-care (01) | DRG 322 ==
LOC: EDINP 12:52 → ED 12:52 → SUATTDRO 17:37 → EDINP 19:41 → 2S 23:13